=== PATIENT | female | born 1975 | race Caucasian/White ===

== ENCOUNTER 2016-06-24 16:24 | Inpatient (IN) | payer OTHER ==
[2016-06-24] MEDS ORDERED: ACETAMINOPHEN 650 MG SUPP PR ONE ×2 (16:31→16:33)
--- NOTE | 2016-06-24 16:35 | CPEKG ---
Heart Rate: 103 RR Interval: 583 P-R Interval: 136 QRSD Interval: 76 QT Interval: 324 QTC Interval: 424 P [place]: 29 QRS [place]: 59 T Wave [place]: 55 EKG Severity - OTHERWISE NORMAL ECG - EKG Impression: SINUS TACHYCARDIA Electronically Signed By: Orquidea Mccormick 24-Jun-2016 21:16:49
[2016-06-24 16:43] LABS: % IMMATURE GRANULYOCYTES 0.6 % (0.0-1.1); ABSOLUTE IMMATURE GRANULOCYTES 0.02 10^3/uL (0.00-0.10); ADD DIFF? NO; ADD MORPH? NO; ADD SCAN? NO; ATYPICAL LYMPHOCYTE FLAG 0 (0-99); FRAGMENT RBC FLAG 0 (0-99); HEMATOCRIT 37.8 % (38.0-47.0); HEMOGLOBIN 13.3 g/dL (12.6-16.3); LEFT SHIFT FLG 10 (0-99); LIPEMIA HEMOLYSIS FLAG 90 (0-99); MEAN CELL HEMOGLOBIN 31.8 pg (27.9-34.1); MEAN CELL HEMOGLOBIN CONCENTR. 35.2 g/dL (32.4-36.7); MEAN CELL VOLUME 90.4 fL (81.5-99.8); MEAN PLATELET VOLUME 9.8 fL (8.7-11.7); PLATELET CLUMPS FLAG 10 (0-99); PLATELET COUNT 293 10^3/uL (150-400); RED BLOOD CELL COUNT 4.18 10^6/uL (4.18-5.33); RED CELL DISTRIBUTION WIDTH 13.2 % (11.5-15.2)
--- NOTE | 2016-06-24 16:43 | EDPHY ---
H & P Time Seen by Provider: 06/24/16 16:30 HPI/ROS: CHIEF COMPLAINT: Fever, altered mental status Limitations: Altered mental status HISTORY OF PRESENT ILLNESS: 41-year-old female previously healthy presents with fever and altered mental status. She has a 9 day history of fever associated with a productive cough. This morning she was acting a little unusual, but her thought it was just because she was sick. This afternoon she took a nap and when her tried to wake her up, she did not respond to him. She was able to open her eyes but was not speaking to him. The patient is with 4 kids and they have all been sick with URI symptoms for the past week. She did not receive a flu vaccination this year. REVIEW OF SYSTEMS (per ): Eyes: No drainage ENT: No sore throat Respiratory: no shortness of breath Cardiac: No chest pain Gastrointestinal: no vomiting, no abdominal pain Genitourinary: no dysuria Musculoskeletal: No leg pain or swelling Skin: No rash Neurological: No headache Psychiatric: No depression Past Medical/Surgical History: Denies Social History: Physical Exam: General Appearance: Eyes are closed, does not respond to voice; when the patient's family is present, she opens her eyes, smiles and looks at them Eyes: Pupils equal and round, no conjunctival pallor ENT, Mouth: Mucous membranes moist Neck: Normal inspection Respiratory: Lungs are clear to auscultation anteriorly Cardiovascular: Regular tachycardia Gastrointestinal: Abdomen is soft and nontender Neurological: Alert, VARGAS, does not follow commands; alternates with unresponsiveness Skin: Warm and dry, no rash Extremities: normal inspection Psychiatric: unable to assess Constitutional: Initial Vital Signs Temperature (C) 39.2 C H 06/24/16 16:24 Heart Rate 113 H 06/24/16 16:24 Respiratory Rate 18 06/24/16 16:24 Blood Pressure 125/77 H 06/24/16 16:24 O2 Sat (%) 90 L 06/24/16 16:24 O2 Delivery Mode Nasal Cannula O2 (L/minute) 2 Allergies/Adverse Reactions: gluten Allergy (Mild, Verified 06/24/16 20:18) Home Medications: Medication Instructions Recorded NK [No Known Home Meds] 06/24/16 Medical Decision Making - Diagnostics Imaging Results: CT scan of the brain read by the radiologist reveals no acute disease. Chest x-ray independently reviewed by me reveals a left-sided infiltrate. Procedures: Procedure: Lumbar puncture. Indication: fever, altered mental status After verbal informed consent from patient explaining the risks of lumbar puncture including infection, bleeding, spinal headache and neurologic damage, a lumbar puncture was performed with the patient in the sitting position after the patient was prepped and draped in the usual fashion. The L4-5 interspace was anesthetized with 1% lidocaine. Approximately 4 cc of clear fluid was obtained. Opening pressure was not obtained. There were no complications. The procedure was performed by myself. ED Course/Re-evaluation: This patient presents with fever and altered mental status. She meets SIRS criteria, but does not meet the severe sepsis criteria. Stat chest x-ray reveals a left-sided infiltrate consistent with pneumonia. Blood cultures were drawn and Levaquin 750 mg IV given. She has persistent altered mental status and she was sent to CT scan. If this is negative, she will need a lumbar puncture to rule out meningitis. CT scan of the brain is negative, read by the radiologist. I discussed the risks and benefits of lumbar puncture with the patient's and her sister. They agree with having this procedure performed. She continues to have altered mental status. She looks at her family when they talked to her, but does not try to talk and there is no verbal response. She is not following commands. Lumbar puncture performed without any complications. CSF reveals no evidence of meningitis. She has had urinary incontinence twice. A Melvin catheter was placed and will be sent for urinalysis and urine toxicology screen. The hospitalist service was consulted for admission. She will be admitted to the step-down unit. Differential Diagnosis: Differential diagnosis includes pyelonephritis, cholecystitis, influenza, cellulitis, abscess, meningitis, encephalitis. - Data Points Laboratory Results: Laboratory Results 06/24/16 16:30 06/24/16 16:30 Microbiology Results: MICROBIOLOGY 06/24/16 18:16 Cerebral Spinal Fluid Gram Stain - Final 06/24/16 18:16 Cerebral Spinal Fluid CSF Culture - Preliminary 06/24/16 16:30 Blood Blood Culture - Preliminary 06/24/16 16:30 Blood Blood Culture - Preliminary Medications Given: Discontinued Medications Acetaminophen (Tylenol Rectal) 650 mg [place] EDNOW ONE Stop: 06/24/16 16:34 Last Admin: 06/24/16 16:37 Dose: 650 mg Haloperidol Lactate (Haldol Injection) 2 mg IVP ONCE ONE Stop: 06/24/16 22:01 Last Admin: 06/24/16 21:49 Dose: 2 mg Sodium Chloride (Ns) 1,000 mls @ 0 mls/hr IV ONCE ONE PRN Reason: Wide Open Stop: 06/24/16 16:56 Last Admin: 06/24/16 16:55 Dose: 1,000 mls Levofloxacin/Dextrose (Levaquin 750 Mg (Premix)) 150 mls @ 100 mls/hr IV EDNOW ONE PRN Reason: Protocol Stop: 06/24/16 18:25 Last Admin: 06/24/16 17:47 Dose: 150 mls Olanzapine (Zyprexa) 2.5 mg PO HS SCOTT Stop: 12/21/16 20:59 Last Admin: 06/24/16 20:34 Dose: Not Given Departure - Departure Disposition: [facility] Inpatient Acute Clinical Impression: Pneumonia Qualifiers: Pneumonia type: due to unspecified organism Laterality: left Lung location: unspecified part of lung Qualified Code(s): J18.9 - Pneumonia, unspecified organism Altered mental status Qualifiers: Altered mental status type: stupor Qualified Code(s): R40.1 - Stupor Condition: Critical
[2016-06-24 16:50] LABS: INR 1.12 (0.83-1.16); PROTIME(PATIENT) 14.3 SEC (12.0-15.0)
[2016-06-24] MEDS ORDERED: NS 1,000 ML IV ONE (16:55)
[2016-06-24 17:09] LABS: ANION GAP 13 mEq/L (8-16); BILIRUBIN,TOTAL 0.9 mg/dL (0.1-1.4); CALCIUM 9.4 mg/dL (8.5-10.4); CARBON DIOXIDE 24 mEq/l (22-31); CHLORIDE 97 mEq/L (97-110); CREATININE 0.9 mg/dL (0.6-1.0); GLOMERULAR FILTRATION RATE > 60; GLUCOSE 97 mg/dL (70-100); POTASSIUM 4.8 mEq/L (3.5-5.2); SODIUM 134 mEq/L (134-144)
[2016-06-24 18:33] LABS: CSF APPEARANCE CLEAR (CLEAR); CSF COLOR COLORLESS (COLORLESS)
[2016-06-24 18:52] LABS: ETHANOL SERUM < 10 mg/dL (0-10)
[2016-06-24 18:57] LABS: WBC, CSF 0 /mm3 (0-5)
[2016-06-24 19:13] LABS: WBC, CSF 2 /mm3 (0-5)
[2016-06-24 19:30] LABS: PROTEIN, CSF 35 mg/dL (12-60)
[2016-06-24] MEDS ORDERED: ONDANSETRON 4 MG/2 ML VIAL IVP PRN (19:33)
[2016-06-24] MEDS ORDERED: ONDANSETRON DISINTEGRATING 4 MG TAB PO PRN (19:33)
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
[2016-06-24] MEDS: NS 1,000 ML IV SCH (20:34)
[2016-06-24] MEDS: OLANZapine DISINTEGR 5 MG TAB PO SCH (20:54)
[2016-06-24] MEDS ORDERED: OLANZapine 2.5 MG TAB PO SCH (21:00)
[2016-06-24] MEDS ORDERED: HALOPERIDOL LACT 5 MG/ML INJ IVP ONE (22:00)
[2016-06-24] MEDS ORDERED: HALOPERIDOL LACT 5 MG/ML INJ IVP PRN (22:04)
[2016-06-24] MEDS ORDERED: ACETAMINOPHEN 650 MG SUPP PR PRN (23:55)
[2016-06-25 05:40] LABS: % IMMATURE GRANULYOCYTES 0.7 % (0.0-1.1); ABSOLUTE IMMATURE GRANULOCYTES 0.02 10^3/uL (0.00-0.10); ADD DIFF? NO; ADD MORPH? NO; ADD SCAN? NO; ATYPICAL LYMPHOCYTE FLAG 0 (0-99); FRAGMENT RBC FLAG 0 (0-99); HEMATOCRIT 32.4 % (38.0-47.0); HEMOGLOBIN 11.3 g/dL (12.6-16.3); LEFT SHIFT FLG 10 (0-99); LIPEMIA HEMOLYSIS FLAG 90 (0-99); MEAN CELL HEMOGLOBIN 32.7 pg (27.9-34.1); MEAN CELL HEMOGLOBIN CONCENTR. 34.9 g/dL (32.4-36.7); MEAN CELL VOLUME 93.6 fL (81.5-99.8); MEAN PLATELET VOLUME 9.5 fL (8.7-11.7); PLATELET CLUMPS FLAG 0 (0-99); PLATELET COUNT 221 10^3/uL (150-400); RED BLOOD CELL COUNT 3.46 10^6/uL (4.18-5.33); RED CELL DISTRIBUTION WIDTH 13.7 % (11.5-15.2)
[2016-06-25 05:58] LABS: ALANINE AMINOTRANSFERASE 25 IU/L (9-52); ALKALINE PHOSPHATASE 38 IU/L (38-126); ANION GAP 7 mEq/L (8-16); ASPARTATE AMINOTRANSFERASE 35 IU/L (14-46); BILIRUBIN,TOTAL 0.4 mg/dL (0.1-1.4); CALCIUM 7.6 mg/dL (8.5-10.4); CARBON DIOXIDE 24 mEq/l (22-31); CHLORIDE 108 mEq/L (97-110); CREATININE 0.7 mg/dL (0.6-1.0); GLOMERULAR FILTRATION RATE > 60; GLUCOSE 162 mg/dL (70-100); MAGNESIUM 2.4 mg/dL (1.6-2.3); POTASSIUM 3.8 mEq/L (3.5-5.2); SODIUM 139 mEq/L (134-144); TOTAL PROTEIN 5.8 g/dL (6.3-8.2)
[2016-06-25] MEDS: NS 1,000 ML IV SCH ×3 (07:09→20:52)
[2016-06-25] MEDS: AZITHROMYCIN 250 MG TAB PO SCH (11:34)
[2016-06-25] MEDS ORDERED: LEVALBUTEROL 0.63 MG/3 ML DEYVIAL IH PRN (13:03)
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
--- NOTE | 2016-06-25 15:54 | HOSPPROG ---
Hospitalist Progress Note Assessment/Plan: 41 yo F with no PMH presenting with altered mental status c/w acute psychosis in the setting of pna and significant psychosocial stressors # acute encephalopathy: sounds most c/w delerium with psychotic features in the setting of infection, lack of sleep and significant psychosocial stress. Patient agitated overnight and requiring haldol, however this morning after several hours of sleeping, much more appropriate and alert. Interacting appropriately with family although continues to assert that her thinking was not confused yesterday. Reviewed extensively with family and does not sound as if she has had prior indolent psychiatric sxs, other than some fears about wifi waves affecting her health--possibly sign of underlying paranoia, though family does not think so. Will monitor, may require psych eval if not clearing completely. Head CT and LP negative. Non focal neuro exam. # LLL pna: on personal review of cxr there is extensive patchy left lower lobe pna present, started on ctx/azithro with blood cultures and viral respiratory panel negative so far. Clinically seems to be improving, continue current abx. # severe sepsis: with fever, tachycardia and tachypnea in the setting of above with end organ dysfunction as evidenced by delerium as well, HD stable, on appropriate abx, monitoring in step down unit. # anemia: trended down slightly overnight likely dilutional, will trend # dispo: IP status, high risk presenting issues requiring close monitoring Patient new to my care. Records reviewed and summarized as above. Further hx obtained from patients mother and sister present at bedside. Care plan reviewed with DR. Navarro and multidisciplinary care team on rounds. Subjective: patient somnolent this am, agitated overnight, no acute complaints , states she does not think she needs to be here Objective: Vital Signs Temp Pulse Resp BP Pulse Ox 36.8 C 101 H 24 H 103/67 97 06/25/16 11:37 06/25/16 11:37 06/25/16 11:37 06/25/16 11:37 06/25/16 11:37 Microbiology 06/24/16 21:25 Respiratory Panel (PCR) - Final Nasal, Sinus - Swab No Organism Detected Laboratory Results 06/25/16 05:17 06/25/16 05:17 06/24/16 06/25/16 06/26/16 05:59 05:59 05:59 Intake Total 4210 Output Total 2550 1000 Balance 1660 -1000 PT 14.3 SEC (12.0-15.0) 06/24/16 16:30 INR 1.12 (0.83-1.16) 06/24/16 16:30 somnolent, minimally arousable anicteric op clear rrr tachy no mrg dec bs at bases with left sided rales soft nt nd no cce warm dry well perfused somnolent, moves all 4, cn intact - Time Spent With Patient Time Spent with Patient: greater than 35 minutes Time Spent with Patient: Greater than 35 minutes spent on this patients care, greater than 50% of time spent counseling, educating, and coordinating care regarding the above mentioned plan. ICD10 Worksheet Patient Problems: Problems Problem Status Onset Pneumonia Acute Altered mental status Acute
[2016-06-25] MEDS: ACETAMINOPHEN 325 MG TAB PO PRN ×2 (16:14→22:58)
[2016-06-25] MEDS: OLANZapine DISINTEGR 5 MG TAB PO SCH (20:44)
[2016-06-25] MEDS: guaiFENesin/CODEINE PHOS 10 ML UDCUP PO PRN (22:51)
[2016-06-26] MEDS: guaiFENesin/CODEINE PHOS 10 ML UDCUP PO PRN ×2 (04:58→15:05)
[2016-06-26] MEDS: AZITHROMYCIN 250 MG TAB PO SCH (08:12)
[2016-06-26] MEDS: ACETAMINOPHEN 325 MG TAB PO PRN ×2 (09:32→17:03)
[2016-06-26 10:54] LABS: % IMMATURE GRANULYOCYTES 0.4 % (0.0-1.1); ABSOLUTE IMMATURE GRANULOCYTES 0.01 10^3/uL (0.00-0.10); ADD DIFF? NO; ADD MORPH? NO; ADD SCAN? NO; ATYPICAL LYMPHOCYTE FLAG 0 (0-99); FRAGMENT RBC FLAG 0 (0-99); HEMATOCRIT 32.3 % (38.0-47.0); HEMOGLOBIN 11.3 g/dL (12.6-16.3); LEFT SHIFT FLG 20 (0-99); LIPEMIA HEMOLYSIS FLAG 90 (0-99); MEAN CELL HEMOGLOBIN 32.2 pg (27.9-34.1); MEAN PLATELET VOLUME 9.2 fL (8.7-11.7); PLATELET CLUMPS FLAG 10 (0-99); PLATELET COUNT 260 10^3/uL (150-400); RED BLOOD CELL COUNT 3.51 10^6/uL (4.18-5.33); RED CELL DISTRIBUTION WIDTH 13.5 % (11.5-15.2)
--- NOTE | 2016-06-26 16:28 | PDINTPN ---
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 Left lower lobe. Significantly improved clinically. Chest x-ray shows some evidence of progression, not unexpected. No viral or bacterial etiology identified. Cultures remain negative so far. Encephalopathy: Secondary to 1. Also improved. Volume depletion: Resolving. Anemia. Probably has underlying anemia with some equilibration secondary to fluids. Plan: Continue present antibiotics. Increase activity/ambulation as tolerated. Continue IS. Xopenex if needed. Check iron studies. Repeat chest x-ray prior to discharge. Subjective: Feels better. Coughing, bringing up cream colored mucus. Mental status and fatigue significantly improved. Objective: Vital Signs Temp Pulse Resp BP Pulse Ox 36.7 C 90 20 116/78 94 06/26/16 16:00 06/26/16 16:00 06/26/16 16:00 06/26/16 16:00 06/26/16 04:55 Laboratory Results 06/26/16 10:50 06/25/16 05:17 06/25/16 06/26/16 06/27/16 05:59 05:59 05:59 Intake Total 4210 3280 Output Total 2550 1600 1525 Balance 1660 1680 -1525 PT 14.3 SEC (12.0-15.0) 06/24/16 16:30 INR 1.12 (0.83-1.16) 06/24/16 16:30 CXR: Some progression of left lower lobe infiltrates, not marked. Physical Exam - Physical Exam General Appearance: alert, no apparent distress EENT: other (On room air) Neck: normal inspection Respiratory: lungs clear (Anteriorly), decreased breath sounds (At bases), rales (Present at left base) Cardiac/Chest: regular rate, rhythm (Somewhat hyperdynamic) Abdomen: normal bowel sounds, non-tender, soft Skin: normal color, warm/dry Lymphatic: no adenopathy Extremities: No pedal edema Neuro/Psych: no motor/sensory deficits, No cognition abnormalities ICD10 Worksheet Patient Problems: Problems Problem Status Onset Pneumonia Acute Altered mental status Acute
--- NOTE | 2016-06-26 16:46 | HOSPPROG ---
Hospitalist Progress Note Assessment/Plan: 41 yo F with no PMH presenting with altered mental status c/w acute psychosis in the setting of pna and significant psychosocial stressors # acute encephalopathy: resolved completely overnight, sounds like delerium with psychotic features in the setting of pna/sepsis/sleep deprivation and psychosocial stress. # LLL pna: on personal review of cxr there is extensive patchy left lower lobe pna present, started on ctx/azithro with blood cultures and viral respiratory panel negative so far. Clinically improving, continue current abx. Personally reviewed/interpreted cxr showing worsening lll pna however clinically much improved. # severe sepsis: with fever, tachycardia and tachypnea in the setting of above with end organ dysfunction as evidenced by delerium as well, HD stable, on appropriate abx, improved though still with intermittent fever and tachycardia. WBC now low. # anemia: trended down slightly initially likely dilutional, stable since # dispo: IP status, high risk presenting issues requiring close monitoring Care plan reviewed with DR. Navarro and multidisciplinary care team on rounds, reviewed care plan with mother and present at bedside. Subjective: this am patient more awake and no longer agitated or confused, she is feeling much better but still having intermittent fevers and tachycardic Objective: Vital Signs Temp Pulse Resp BP Pulse Ox 36.7 C 90 20 116/78 94 06/26/16 16:00 06/26/16 16:00 06/26/16 16:00 06/26/16 16:00 06/26/16 04:55 Laboratory Results 06/26/16 10:50 06/25/16 05:17 06/25/16 06/26/16 06/27/16 05:59 05:59 05:59 Intake Total 4210 3280 Output Total 2550 1600 1525 Balance 1660 1680 -1525 PT 14.3 SEC (12.0-15.0) 06/24/16 16:30 INR 1.12 (0.83-1.16) 06/24/16 16:30 awake alert anicteric op clear rrr tachy left sided rhonchi to mid lung field, normal wob soft nt nd no cce warm dry well perfused oriented appropriate - Time Spent With Patient Time Spent with Patient: greater than 35 minutes Time Spent with Patient: Greater than 35 minutes spent on this patients care, greater than 50% of time spent counseling, educating, and coordinating care regarding the above mentioned plan. ICD10 Worksheet Patient Problems: Problems Problem Status Onset Pneumonia Acute Altered mental status Acute
[2016-06-26] MEDS: OLANZapine DISINTEGR 5 MG TAB PO SCH (20:10)
[2016-06-27] MEDS: ACETAMINOPHEN 325 MG TAB PO PRN (04:37)
[2016-06-27 04:51] LABS: ANION GAP 13 mEq/L (8-16); CALCIUM 9.1 mg/dL (8.5-10.4); CARBON DIOXIDE 27 mEq/l (22-31); CHLORIDE 99 mEq/L (97-110); CREATININE 0.6 mg/dL (0.6-1.0); GLOMERULAR FILTRATION RATE > 60; GLUCOSE 109 mg/dL (70-100); MAGNESIUM 2.2 mg/dL (1.6-2.3); POTASSIUM 3.7 mEq/L (3.5-5.2); SODIUM 139 mEq/L (134-144)
[2016-06-27 04:52] LABS: % IMMATURE GRANULYOCYTES 0.4 % (0.0-1.1); ABSOLUTE IMMATURE GRANULOCYTES 0.01 10^3/uL (0.00-0.10); ADD DIFF? NO; ADD MORPH? NO; ADD SCAN? YES; FRAGMENT RBC FLAG 0 (0-99); HEMOGLOBIN 12.9 g/dL (12.6-16.3); LEFT SHIFT FLG 0 (0-99); LIPEMIA HEMOLYSIS FLAG 90 (0-99); MEAN CELL HEMOGLOBIN 32.2 pg (27.9-34.1); MEAN CELL HEMOGLOBIN CONCENTR. 34.9 g/dL (32.4-36.7); MEAN CELL VOLUME 92.3 fL (81.5-99.8); MEAN PLATELET VOLUME 9.4 fL (8.7-11.7); PLATELET CLUMPS FLAG 20 (0-99); PLATELET COUNT 330 10^3/uL (150-400); RED BLOOD CELL COUNT 4.01 10^6/uL (4.18-5.33); RED CELL DISTRIBUTION WIDTH 13.4 % (11.5-15.2)
[2016-06-27 04:57] LABS: ATYPICAL LYMPHOCYTE FLAG 130 (0-99)
[2016-06-27 05:00] LABS: % SATURATION 11 % (20-55); TOTAL IRON BINDING CAPACITY 241 ug/dL (260-490)
[2016-06-27 06:01] LABS: SCAN NEGATIVE
[2016-06-27 07:44] VITALS: BP 105/65; PULSE 83; RESP 18; TEMP 97.7; O2SAT 97
[2016-06-27] MEDS: AZITHROMYCIN 250 MG TAB PO SCH (08:38)
--- NOTE | 2016-06-27 11:18 | PDDCSUM ---
Discharge Summary Discharge Summary: DISCHARGE DIAGNOSES: -ACUTE COMMUNITY-ACQUIRED PNEUMONIA -ACUTE ENCEPHALOPATHY DUE TO PNEUMONIA CONSULTANTS: DR. SAMIR NAVARRO PROCEDURES: CT scan of head HOSPITAL COURSE SUMMARY: This patient presented with acute confusional state, fevers, cough shortness of breath was found to have severe sepsis and evidence of pneumonia. This is a community-acquired pneumonia. There were multiple acquaintances and family members with recent febrile upper respiratory symptoms as well. Blood cultures and a viral respiratory panel returned no organisms. The patient was resuscitated with intravenous fluids vigorously, started immediately on IV antibiotics. Gradually over time her confusional state completely resolved. Her pneumonia is still marked by productive cough and some mild dyspnea but she is up walking in the halls, eating well, using room higher without any significant dyspnea. There has been no other organ failure and no other sign of complications. She still has infiltrate demonstrated on current chest x-ray. At this time she is stable for discharge to home. She will require ongoing antibiotic therapy. Follow-up will be with Dr. Samir Navarro and he will plan to reassess with a repeat chest x-ray. PENDING TEST RESULTS: None MEDICATION CHANGES: Addition of Levaquin 750 mg daily for 7 more days FOLLOW-UP PLAN: Follow up in clinic with Dr. Samir Navarro in 1 week Greater than 35 minutes bedside and care coordination time today
--- NOTE | 2016-06-27 12:50 | PDINTPN ---
[employer] Progress Note Assessment/Plan: Assessment: Community-acquired pneumonia. Left lower lobe. Significantly improved clinically. Chest x-ray showed some evidence of progression yesterday, not unexpected. Chest x-ray was not repeated today. No viral or bacterial etiology identified. Cultures remain negative so far. Encephalopathy: Secondary to 1. Also improved. Volume depletion: Resolving. Anemia. HCT 37 today, better. Iron is low at 26, normal ferritin. Plan: Okay for discharge to home today on oral Levaquin for 7 days further. She will continue IS at home, gradually increase activity as she feels better. Adequate nutrition and hydration is important. She will take probiotics an herbal preparations for lung health, etc. To follow up with me in the office in approximately 3 weeks. A follow-up chest x-ray will be done before that visit. All the above was discussed with the patient and her family, hospitalist. Subjective: Feels much better. However still somewhat fatigued. She is coughing and continues to bring up some cream colored mucus. Some shortness of breath as well...anxious for discharge. Objective: Vital Signs Temp Pulse Resp BP Pulse Ox 36.5 C 83 18 105/65 97 06/27/16 07:43 06/27/16 07:43 06/27/16 07:43 06/27/16 07:43 06/27/16 07:43 Laboratory Results 06/27/16 04:30 06/27/16 04:30 06/26/16 06/27/16 06/28/16 05:59 05:59 05:59 Intake Total 3280 2500 Output Total 1600 1825 Balance 1680 675 PT 14.3 SEC (12.0-15.0) 06/24/16 16:30 INR 1.12 (0.83-1.16) 06/24/16 16:30 Laboratory Tests 06/25/16 06/25/16 15:10 15:10 Mycoplasma pneumon IgM NEGATIVE Ur Strep pneumoniae Ag Negative - Pending Discharge Pending Discharge Within 48 Hours: No Physical Exam - Physical Exam General Appearance: alert, no apparent distress EENT: other (On room air) Neck: normal inspection Respiratory: decreased breath sounds, rales, rhonchi (Set), other (No E to a changes), No wheezing Cardiac/Chest: regular rate, rhythm (LEs hyperdynamic) Abdomen: normal bowel sounds, non-tender, soft Skin: normal color, warm/dry Extremities: pedal edema Neuro/Psych: no motor/sensory deficits, No cognition abnormalities ICD10 Worksheet Patient Problems: Problems Problem Status Onset Altered mental status Acute Pneumonia Acute
== END 2016-06-27 11:58 | disposition home or self-care (01) | DRG 871 ==
LOC: F2N 19:50
PROVIDERS: ADMIT Internal Medicine; ATTEND Internal Medicine
PROC: 009U3ZX Drainage of Spinal Canal, Percutaneous Approach, Diagnostic (ICD-10-PCS; principal; 2016-06-24)
DX: A41.9 Sepsis, unspecified organism (principal); J18.8 Other pneumonia, unspecified organism; G93.41 Metabolic encephalopathy; R65.20 Severe sepsis without septic shock; D64.9 Anemia, unspecified
CPT/HCPCS: 80305; 82947-QW; 86738-90; 96374; G0480; J0696; J1956